=== PATIENT | female | born 1960 | race Caucasian/White ===

== ENCOUNTER 2017-05-02 12:00 | Day surgery (SDC) | payer OTHER ==
[~2017-05-02] VITALS: Ht 165.1 cm; Wt 86.1 kg
[~2017-05-02 12:00] MED LIST: AUGMENTIN875 MG PO; Dilaudid PO; MOTRIN400 MG PO; MOTRIN800 MG PO; Motrin PO; SKELAXIN800 MG PO; ULTRAM50 MG PO; Vibramycin, Doryx PO
[2017-05-02 12:21] VITALS: BP 141/78
[2017-05-02 19:35] VITALS: BP 135/90
[2017-05-02 23:19] VITALS: BP 128/70
[2017-05-03 04:22] VITALS: BP 126/93
[2017-05-03 08:14] VITALS: BP 120/73
[2017-05-03] MEDS ORDERED: ASPIR-LOW81 MG PO (08:25)
[2017-05-03] MEDS ORDERED: HYDROMORPHONE HC2 MG PO (08:27)
== END 2017-05-03 10:58 | disposition home or self-care (01) ==
LOC: SDC 12:00 → 2SOUTH 16:40 → 3EAST 16:40 → ENRESERV 17:11 → 3EAST 19:15
DX: M75.101 Unspecified rotator cuff tear or rupture of right shoulder, not specified as traumatic (principal); M75.41 Impingement syndrome of right shoulder; M19.011 Primary osteoarthritis, right shoulder; M75.01 Adhesive capsulitis of right shoulder; Z88.2 Allergy status to sulfonamides
CPT/HCPCS: 93005; G0378; J0690; J1100; J2250; J2405; J2795; J3010; J7120; Q0175